=== PATIENT | male | born 1980 | race African-American/Black ===

== ENCOUNTER 2017-05-08 18:06 | Emergency (ER) | payer OTHER ==
[2017-05-08] MEDS ORDERED: NO MEDICATIONS (18:23)
[2017-05-08] MEDS ORDERED: ROBAXIN500 MG PO (19:49)
[2017-05-08] MEDS ORDERED: IBUPROFEN800 MG PO (19:54)
== END 2017-05-08 19:54 | disposition home or self-care (01) ==
LOC: SED 18:06
DX: S39.012A Strain of muscle, fascia and tendon of lower back, initial encounter (principal); S00.83XA Contusion of other part of head, initial encounter; V49.59XA Passenger injured in collision with other motor vehicles in traffic accident, initial encounter; Y92.410 Unspecified street and highway as the place of occurrence of the external cause
CPT/HCPCS: 99283